=== PATIENT | female | born 1970 | race Caucasian/White ===

== ENCOUNTER 2021-05-10 09:21 | Emergency (ER) | payer SELFPAY ==
[~2021-05-10] VITALS: Ht 167.6 cm; Wt 93.0 kg
[2021-05-10 09:28] VITALS: BP 110/63
--- NOTE | 2021-05-10 09:42 | NUR ---
50YO F C/O CONSTIPATION AND 6/10 LOWER ABDOMINAL PAIN X 2 DAYS. PT COMPLAINS OF BLOODY STOOLS, LBM: 05/08/21. DULCOLAX AND SUKUNAI OTC LAXATIVES TAKEN, WHICH PROVIDED NO RELIEF. PT INSERTED SUPPOSITORY THIS AM, STILL WITH NO RELIEF. DENIES VOMITING, DENIES URINARY SYMPTOMS. IN ED, VSS. ABDOMEN SOFT, NONTENDER WITH HYPOACTIVE BOWEL SOUNDS. ERMD MADE AWARE OF PT STATUS. PMH: SCLEROTHERAPY (APR) MEDS: NONE NKA
--- NOTE | 2021-05-10 12:26 | NUR ---
FLEET ENEMA DONE. +BLOODY STOOLS. PT TOLERATED PROCEDURE WELL.
[2021-05-10] MEDS ORDERED: BEN10 PO (13:18)
[2021-05-10] MEDS ORDERED: MAGN296S48 PO (13:18)
[2021-05-10 13:41] VITALS: BP 110/63
--- NOTE | 2021-05-10 13:43 | NUR ---
Patient discharged with v/s stable. Written and verbal after care instructions given and explained. Patient alert, oriented and verbalized understanding of instructions. Ambulatory with steady gait. All questions addressed prior to discharge. ID band removed. Patient advised to follow up with PMD. Rx of NATHANIEL GRAYSON given. Patient educated on indication of medication including possible reaction and side effects. Opportunity to ask questions provided and answered.
[2021-05-10] MEDS ORDERED: HYD1C TP (13:48)
== END 2021-05-10 13:43 | disposition home or self-care (01) ==
LOC: MED 09:21
DX: K59.00 Constipation, unspecified (principal); K92.1 Melena
CPT/HCPCS: 74018; 99284